=== PATIENT | male | born 1980 | race Caucasian/White ===

== ENCOUNTER 2020-12-13 10:30 | Outpatient (RCR) | payer OTHER, MEDICAID, SELFPAY ==
[2020-11-15 10:16] VITALS: BP 226/134; PULSE 127; RESP 18; TEMP 35.9
--- NOTE | 2020-11-15 12:16 | PCM.WC.HP ---
History of Present Illness Date of Service: 11/15/20 Chief Complaint: nonhealing wound of right posterior shoulder History of Wound: Chester is a 40 yo gentleman that presents to the wound healing center today for evaluation and treatment of a nonhealing wound of his right posterior shoulder. This has been present for approximately 1 month. He reports that he went to urgent care and was treated with doxycycline in mid-October and saw his a [employer] PILOT at his PCP office and was referred here for treatment. The wound started as an abscess that drained and hasn't healed. He has been treating the ulcer with rubbing alcohol and applying bandaids. He reports that he gets pimple like lesions and they drain and then will heal usually. He usually gets these on his legs or abdomen. He also has uncontrolled HTN and diabetes mellitus. He has not been taking any medications for the last year for treatment of these medical problems. He still has not restarted his diabetes medication. He did restart his blood pressure medication but was given half dose of what he was taking previously. He has a follow up with his PCP on 11/26/20 regarding management of this. His blood pressure is significantly elevated here today at 226/134 but similar to his BP reading at his PCP appointment. He denies any headaches, blurred vision, loss of vision, chest pain, dizziness, shortness of breath. He also denies fever or chills. He has not had any problems healing wounds in the past. He lives with his and 2 children. His is expecting their 3rd child in January. He works at [employer]. [facility] Medical History (Updated 11/15/20 @ 12:[address] Madelyn Keane DO) Diabetes mellitus, insulin dependent (IDDM), uncontrolled HTN (hypertension) Noncompliance w/medication treatment due to intermit use of medication Open wound of right scapular region Home Medications amlodipine 5 mg PO DAILY 11/15/20 [History Last Taken Unknown] amoxicillin-pot clavulanate [Augmentin] 1 tab PO BID #20 tab 11/15/20 [Rx Last Taken Unknown] doxepin 10 mg PO DAILY 11/15/20 [History Last Taken Unknown] insulin aspart U-100 [Novolog Flexpen U-100 Insulin] 10 unit SUBCUT 4X/DAY 11/15/20 [History Last Taken Unknown] insulin glargine [Lantus Solostar U-100 Insulin] 70 unit SUBCUT QHS 11/15/20 [History Last Taken Unknown] labetalol 300 mg PO BID 11/15/20 [History Last Taken Unknown] lisinopril 20 mg PO BID 11/15/20 [History Last Taken Unknown] loratadine 10 mg PO DAILY 11/15/20 [History Last Taken Unknown] metformin 1,000 mg PO BID 11/15/20 [History Last Taken Unknown] Allergy/AdvReac Type Severity Reaction Status Date / Time shellfish derived Allergy Shortness Verified 11/15/20 10:14 of breath Social History Smoking Status: Never smoker ROS Constitutional Constitutional: Denies chills, fatigue, fever(s), headache(s) or weakness Eyes Eyes: Denies blindness, blurry vision, change in vision, diplopia, double vision or loss of vision ENT HEENT: Denies abnormal hearing Cardiovascular Cardiovascular: Denies chest pain, dizziness, dyspnea, edema or palpitations Respiratory/Chest Respiratory/Chest: Denies cough or dyspnea Musculoskeletal Musculoskeletal: Denies muscle weakness or numbness Integumentary Integumentary: Reports wounds Neurologic Neurologic: Denies abnormal speech, confusion, dizziness, focal weakness, headache(s), loss of vision, memory loss or numbness Endocrine Endocrinology: Denies polydipsia, polyphagia or polyuria Hematologic/Lymphatic Hematologic/Lymphatic: Denies easy bleeding or easy bruising Vital Signs Vital Signs Vital Signs: 11/15/20 10:16 Temperature 96.7 F L Temperature Source Temporal Pulse Rate 127 H Respiratory Rate 18 Blood Pressure 226/134 H Blood Pressure Mean 164 Blood Pressure Source Monitor Blood Pressure Position Semi-Fowlers Blood Pressure Location Left Arm Physical Exam Const alert, oriented x3 and no apparent distress General Appearance: cooperative and comfortable HEENT normocephalic and head/scalp atraumatic Eyes PERRL Lymph Lymphatic: no lymphadenopathy noted Resp normal respiratory effort Effort and Inspection: able to speak in complete sentences Auscultation: clear to auscultation bilaterally Cardio regular rate and regular rhythm GI soft to palpation and non-distended Extremity General Extremity: Negative for edema Skin General Skin Exam: erythema Wounds: wounds noted Wound Narrative: as in clinical panel Neuro oriented x3 and no focal motor deficits Psych mental status grossly normal, thought process normal, cooperative, affect normal and speech normal Debridement Note Debridement Note Wound debrided: right upper back Laterality: Right Type of Debridement: Excisional debridement Anesthesia Used: 4% Lidocaine Solution Depth: Down to and including healthy tissue and in the subcutaneous layer Percentage of wound debrided: 100 Instrument Used: #15 blade and Forceps Tissue Removed: Yellow slough, devitalized tissue Severity: Fat Layer Exposed Amount of bleeding with debridement: Mild Bleeding Controlled with: Compression and gauze Patient tolerated procedure: Patient tolerated procedure well Post-Debridement Measurements and Additional Note: Post-Debridement Measurements/Treatment - Nurse 1 - General Ulcer Assessment Start: 11/15/20 10:13 Freq: Status: Active Protocol: LAVINIA.LOWEXT Activity Type Activity Date Activity User E-Sign Co-Sign Detail Recorded Client Recorded Date Recorded By Document 11/15/20 10:16 [id number] 11/15/20 10:32 RB 11/15/20 10:16 - Today's Visit Information Type of service Initial Visit Arrival Mode Ambulatory Transfer Assistance None Patient Identification Verified (Name & Yes ) Patient Requires Transmission-Based No Precautions Vital Signs Temperature (97.8 F-99.1 F) 96.7 F L Temperature Source Temporal Pulse Rate (60-100) 127 H Pulse Location Monitor Respiratory Rate (12-18) 18 Respiratory rate source Observation Blood Pressure (90/60-120/80) 226/134 H Blood Pressure Mean 164 Source Monitor Position Semi-Fowlers Blood Pressure Location Left Arm History Since Last Visit- (Skip if this is Patient's initial visit) Have you changed medications since your No last visit? Any new allergies or adverse reactions No Had a fall/change in ADL's that may No increase risk of falls Signs or symptoms of abuse and/or No neglect since last visit Have you been in the hospital since your No last visit? Has dressing in place as prescribed Yes Has compression in place as prescribed No Has offloadiing in place as prescribed No Experienced any changes in pain level or No management Left Footwear Regular Shoe Right Footwear Regular Shoe Pain Scale: 0-10 Numeric Is Patient Pain Free? Yes Communication Assessment Preferred language Vietnamese Automotive Repair Technician Required No Able to Read Yes Able to Write Yes Communication Tools None Caregiver Communication Skills No Impairment Impairment Right Hearing Abillity Normal Left Hearing Abillity Normal Visual Assistive Devices None Teaching Assessment Preferences Verbal,Written, Demonstration Barriers to Learning None Readiness To Learn Good Willingness to Engage in Self Management Med Activies Readiness to Engage in Self Management Med Activities Anxiety Level Calm Cooperation Cooperative Perception Coherent Interest in Health Problem Asks Questions Education Importance Acknowledges Need Does Patient Smoke tobacco or other Yes substances Smoking Status Never smoker Is Patient Diabetic Yes Functional Assessment Recent Decline in Ability to Perform Denies Any Declines Assistive Device With Patient No Culture/Oriental Orthodox/Ward Maid Cultural/Oriental Orthodox Needs that may affect No Treatment Plan Would you allow our hospital embedded engineer to No meet you for the purpose of spiritual/ emotional support? Ward Maid to contact place of orthodoxy No Teaching: Wound Center *Welcome to the Wound Center -Person Taught Patient -Teaching Method Discussion, Demonstration -Response to teaching Verbalize understanding LAVINIA - Nurse 1 - General Ulcer Measurement Start: 11/15/20 10:13 Freq: Status: Active Protocol: Activity Type Activity Date Activity User E-Sign Co-Sign Detail Recorded Client Recorded Date Recorded By Document 11/15/20 10:16 RB [id number] 11/15/20 10:32 RB 11/15/20 10:16 Wound Center Nurse 1 1. RIGHT UPPER BACK -Combined with other wound No -Current Size (cm) - Length 3 -Current Size (cm) - Width 3.5 -Current Size (cm) - Depth 1 -Total Square Cm 10.5 -Photo Taken Yes -Tunneling No -Undermining/Tunneling Yes -Undermining/Tunneling Starts (O'clock 10 ) -Undermining/Tunneling Ends (O'clock) 12 -Maximum Distance (cm) 0.4 -Circular Undermining No -Exudate Amt Large -Exudate Type Serosanguineous -Wound Margin Thickened & Rolled Under -Granulation Amt Medium (34-66%) -Granulation Quality [place] -Slough/Fibrin Yes -Necrosis Amt Medium (34-66%) -Necrotic Tissue Type Adherent Slough -Structure Exposed N/A -Texture (Jess-wound Skin Appearance) Assessed, Excoriation, Scarring -Moisture (Jess-wound Skin Appearance) Assessed -Color (Jess-wound Skin Appearance) Assessed -Temperature (Jess-wound Skin No Abnormality Appearance) (Pt Warm) -Tenderness on Palpation (Jess-wound No Skin Appearance) -Ulcer Cleansing Wound Cleanser -Foul Odor after Cleansing No -Anesthetic Used 4% Lidocaine Solution LAVINIA - Nurse 2 - General Ulcer CM Notes Start: 11/15/20 10:13 Freq: Status: Active Protocol: Activity Type Activity Date Activity User E-Sign Co-Sign Detail Recorded Client Recorded Date Recorded By Document 11/15/20 11:01 MW [id number] 11/15/20 11:16 MW 11/15/20 11:01 Wound Center Nurse 2 -Time 11:01 -Correct Patient Yes -Correct Side, Site, Position Yes -Correct Procedure Yes -Procedure Performed Yes -Type of Procedure Debridement -Clinical Debridement Subcutaneous -Tissue Removed Subcutaneous -Post Debridement (cm) - Length 3.5 -Post Debridement (cm) - Width 4.5 -Post Debridement (cm) - Depth 0.9 -Total Square (Post) (cm) 15.75 -Area of Debridement (cm) - Length 3.5 -Area of Debridement (cm) - Width 4.5 -Total Square (Area) (cm) 15.75 -Tunneling Yes -Tunneling Position (O'clock) 5 -Tunneling Distance (cm) 0.9 -Undermining/Tunneling Yes -Undermining/Tunneling Starts (O'clock 1 ) -Undermining/Tunneling Ends (O'clock) 2 -Maximum Distance (cm) 0.9 -Circular Undermining No -Wound/Ulcer Outcome Not Healed -Ulcer Cleansing Rinsed/ Irrigated with Saline -Foul Odor after Cleansing No -Bioengineered Tissue No -Bleeding Controlled with Pressure -Offloading No -Treatment Response Procedure Tolerated Well -Debridement - Subq, 1st 20sq cm Yes Pain Scale: 0-10 Numeric Is Patient Pain Free? Yes - Nurse 3 - General Ulcer D/C NN Start: 11/15/20 10:13 Freq: Status: Active Protocol: Activity Type Activity Date Activity User E-Sign Co-Sign Detail Recorded Client Recorded Date Recorded By Document 11/15/20 11:24 MW [id number] 11/15/20 11:27 MW 11/15/20 11:24 Wound Care Nurse 3 1. RIGHT UPPER BACK -Ulcer Cleansing Rinsed/ Irrigated with Saline -Foul Odor after Cleansing No -Negative Pressure Wound Therapy N/A -Primary Dressing Applied Aquacel AG 4x4 -Primary Dressing Covered/Secured with Secured with Tape -Other Covering ABD PAD -Aquacel AG 4x4 2 Treatment Response Procedure Tolerated Well Pain Scale: 0-10 Numeric Is Patient Pain Free? Yes Teaching: Wound Center Dressing Your Wound -Person Taught Patient -Teaching Method Demonstration -Response to teaching Verbalize understanding WC - Visit Discharge Discharge Condition Stable Ambulatory Status Ambulatory Transportation Private Auto Accompanied by SELF Medication Reconcilliation completed & No provided to patient/care provider Clinical Summary of Care Provided Yes Assessment/Plan Assessment/Plan (1) Non-healing non-surgical wound: CODE(S): T14.8XXA - Other injury of unspecified body region, initial encounter (2) Diabetes mellitus, insulin dependent (IDDM), uncontrolled: (3) Abscess of scapular region: CODE(S): L02.212 - Cutaneous abscess of back [any part, except buttock] (4) Asymptomatic hypertensive urgency: CODE(S): I16.0 - Hypertensive urgency (5) HTN (hypertension): CODE(S): I10 - Essential (primary) hypertension QUALIFIERS: Hypertension type: primary hypertension Qualified Code(s): I10 - Essential (primary) hypertension (6) Noncompliance w/medication treatment due to intermit use of medication: CODE(S): Z91.14 - Patient's other noncompliance with medication regimen (7) Open wound of right scapular region: CODE(S): S41.001A - Unspecified open wound of right shoulder, initial encounter QUALIFIERS: Encounter type: initial encounter Qualified Code(s): S41.001A - Unspecified open wound of right shoulder, initial encounter PLAN: Chester's wound was evaluated and debrided today at the wound healing center. Wound culture was taken to evaluate for infection and he will start on Augmentin and will adjust the antibiotic if needed based on results of the wound culture. Due to moderate to heavy drainage, will have him use Aquacel Ag to the wound bed and cover with adaptic and ABD with changes daily. His will assist him with the dressing changes. His elevated blood pressure was addressed with him and he was urged to call his PCP to adjust his medications. He was encouraged to start back on his diabetes medications, as the control of his blood sugars is important in healing his wound. He was advised to increase protein intake in order to support wound healing. He was advised to call if worsening of wound, erythema, fever, chills, odor develop. Would consider biopsy of the wound if there is not improvement or infection on culture. He will follow up in 1 week for wound care.
[2020-11-22 10:54] VITALS: BP 196/123; PULSE 112; RESP 18; TEMP 35.7
--- NOTE | 2020-11-22 14:25 | PN.PCM_ITS ---
History of Present Illness Date of Service: 11/22/20 Chief Complaint: nonhealing wound of right posterior shoulder History of Wound: Chester is a 40 yo gentleman that presents to the wound healing center today for evaluation and treatment of a nonhealing wound of his right posterior shoulder. This has been present for approximately 1 month. He reports that he went to urgent care and was treated with doxycycline in mid-October and saw his a EXTRACTIONS TECHNOLOGIST at his PCP office and was referred here for treatment. The wound started as an abscess that drained and hasn't healed. He has been treating the ulcer with rubbing alcohol and applying bandaids. He reports that he gets pimple like lesions and they drain and then will heal usually. He usually gets these on his legs or abdomen. He also has uncontrolled HTN and diabetes mellitus. He has not been taking any medications for the last year for treatment of these medical problems. He still has not restarted his diabetes medication. He did restart his blood pressure medication but was given half dose of what he was taking previously. He has a follow up with his PCP on 11/26/20 regarding management of this. His blood pressure is significantly elevated here today at 226/134 but similar to his BP reading at his PCP appointment. He denies any headaches, blurred vision, loss of vision, chest pain, dizziness, shortness of breath. He also denies fever or chills. He has not had any problems healing wounds in the past. He lives with his and 2 children. His is expecting their 3rd child in January. He works at [employer]. Progress of Wound: Chester's ulcer/wound is improved. He is tolerating treatment well. Wound culture was positive for Staph and was sensitive to Augmentin. He completes this in 2 days. Objective Data Objective Data Vital Signs: Vital Signs Temp Pulse Resp BP 96.2 F L 112 H 18 196/123 H 11/22/20 10:54 11/22/20 10:54 11/22/20 10:54 11/22/20 10:54 Lab / Micro Data Micro: Microbiology 11/15/20 11:15 Wound Abcess - Back Gram Stain - Final 11/15/20 11:15 Wound Abcess - Back Wound Culture - Final Staphylococcus aureus 11/15/20 11:15 Wound Abcess - Back Anaerobic Culture - Final No anaerobic bacteria isolated. Physical Exam Const alert, oriented x3 and no apparent distress General Appearance: cooperative and comfortable HEENT normocephalic and head/scalp atraumatic Eyes PERRL Lymph Lymphatic: no lymphadenopathy noted Resp normal respiratory effort Effort and Inspection: able to speak in complete sentences Auscultation: clear to auscultation bilaterally Cardio regular rate and regular rhythm GI soft to palpation and non-distended Extremity General Extremity: Negative for edema Skin General Skin Exam: erythema Wounds: wounds noted Wound Narrative: as in clinical panel Neuro oriented x3 and no focal motor deficits Psych mental status grossly normal, thought process normal, cooperative, affect normal and speech normal Debridement Note Debridement Note Wound debrided: right upper back Laterality: Right Type of Debridement: Excisional debridement Anesthesia Used: 4% Lidocaine Solution Depth: Down to and including healthy tissue and in the subcutaneous layer Percentage of wound debrided: 100 Instrument Used: 3mm curette Tissue Removed: Yellow slough, devitalized tissue Severity: Fat Layer Exposed Amount of bleeding with debridement: Mild Bleeding Controlled with: Compression and gauze Patient tolerated procedure: Patient tolerated procedure well Post-Debridement Measurements and Additional Note: Post-Debridement Measurements/Treatment [facility] Nurse 1 - General Ulcer Assessment Start: 11/15/20 10:13 Freq: Status: Active Protocol: MYAH Activity Type Activity Date Activity User E-Sign Co-Sign Detail Recorded Client Recorded Date Recorded By Document 11/15/20 10:16 [id number] 11/15/20 10:32 Document 11/22/20 10:54 JAYJAY [id number] 11/22/20 11:04 11/15/20 11/22/20 10:16 10:54 - Today's Visit Information Type of service Initial Visit Follow-up Visit (Physician/EXTRACTIONS TECHNOLOGIST ) Arrival Mode Ambulatory Ambulatory Transfer Assistance None Patient Identification Verified (Name & Yes No ) Patient Requires Transmission-Based No No Precautions Finger Stick Blood Sugar(mg/dl) (if 250 indicated): Blood Sugar Stated by Patient Vital Signs Temperature (97.8 F-99.1 F) 96.7 F L 96.2 F L Temperature Source Temporal Temporal Pulse Rate (60-100) 127 H 112 H Pulse Location Monitor Monitor Respiratory Rate (12-18) 18 18 Respiratory rate source Observation Observation Blood Pressure (90/60-120/80) 226/134 H 196/123 H Blood Pressure Mean (mm Hg) 164 147 Source Monitor Monitor Position Semi-Fowlers Sitting Blood Pressure Location Left Arm Left Arm History Since Last Visit- (Skip if this is Patient's initial visit) Have you changed medications since your No No last visit? Any new allergies or adverse reactions No No Had a fall/change in ADL's that may No increase risk of falls Signs or symptoms of abuse and/or No No neglect since last visit Have you been in the hospital since your No No last visit? Has dressing in place as prescribed Yes Yes Has compression in place as prescribed No N/A Has offloadiing in place as prescribed No N/A Experienced any changes in pain level or No No management Left Footwear Regular Shoe Regular Shoe Right Footwear Regular Shoe Regular Shoe Pain Scale: 0-10 Numeric Is Patient Pain Free? Yes Yes Communication Assessment Preferred language [place] Customer Experience Strategist Required No Able to Read Yes Able to Write Yes Communication Tools None Caregiver Communication Skills No Impairment Impairment Right Hearing Abillity Normal Left Hearing Abillity Normal Visual Assistive Devices None Teaching Assessment Preferences Verbal,Written, Demonstration Barriers to Learning None Readiness To Learn Good Willingness to Engage in Self Management Med Activies Readiness to Engage in Self Management Med Activities Anxiety Level Calm Cooperation Cooperative Perception Coherent Interest in Health Problem Asks Questions Education Importance Acknowledges Need Does Patient Smoke tobacco or other Yes substances Smoking Status Never smoker Is Patient Diabetic Yes Functional Assessment Recent Decline in Ability to Perform Denies Any Declines Assistive Device With Patient No Culture/Samaritan/Ground Products Director Cultural/Samaritan Needs that may affect No Treatment Plan Would you allow our hospital loans officer to No meet you for the purpose of spiritual/ emotional support? Ground Products Director to contact place of jehovah's witness No Teaching: Wound Center *Welcome to the Wound Center -Person Taught Patient -Teaching Method Discussion, Demonstration -Response to teaching Verbalize understanding WC - Nurse 1 - General Ulcer Measurement Start: 11/15/20 10:13 Freq: Status: Active Protocol: Activity Type Activity Date Activity User E-Sign Co-Sign Detail Recorded Client Recorded Date Recorded By Document 11/15/20 10:16 RB [id number] 11/15/20 10:32 RB Document 11/22/20 10:54 JAYJAY [id number] 11/22/20 11:04 JAYJAY 11/15/20 11/22/20 10:16 10:54 Wound Center Nurse 1 1. RIGHT UPPER BACK -Combined with other wound No No -Current Size (cm) - Length 3 2.7 -Current Size (cm) - Width 3.5 4.1 -Current Size (cm) - Depth 1 0.7 -Total Square Cm 10.5 11.07 -Photo Taken Yes No -Epithelialization Small 1-33% -Tunneling No No -Undermining/Tunneling Yes No -Undermining/Tunneling Starts (O'clock 10 ) -Undermining/Tunneling Ends (O'clock) 12 -Maximum Distance (cm) 0.4 -Circular Undermining No No -Exudate Amt Large Medium -Exudate Type Serosanguineous Serosanguineous -Wound Margin Thickened & Flat & Intact Rolled Under -Granulation Amt Medium (34-66%) Large (67-100%) -Granulation Quality Spur Red -Slough/Fibrin Yes Yes -Necrosis Amt Medium (34-66%) Small (1-33%) -Necrotic Tissue Type Adherent Slough Adherent Slough -Structure Exposed N/A N/A -Texture (Jess-wound Skin Appearance) Assessed, Assessed Excoriation, Scarring -Moisture (Jess-wound Skin Appearance) Assessed -Color (Jess-wound Skin Appearance) Assessed Assessed -Temperature (Jess-wound Skin No Abnormality No Abnormality Appearance) (Pt Warm) (Pt Warm) -Tenderness on Palpation (Jess-wound No No Skin Appearance) -Ulcer Cleansing Wound Cleanser Rinsed/ Irrigated with Saline -Foul Odor after Cleansing No No -Anesthetic Used 4% Lidocaine 4% Lidocaine Solution Solution Lower Limb Edema Present NA WC - Nurse 2 - General Ulcer CM Notes Start: 11/15/20 10:13 Freq: Status: Active Protocol: Activity Type Activity Date Activity User E-Sign Co-Sign Detail Recorded Client Recorded Date Recorded By Document 11/15/20 11:01 MW [id number] 11/15/20 11:16 MW Document 11/22/20 11:29 MW [id number] 11/22/20 11:36 MW 11/15/20 11/22/20 11:01 11:29 Wound Center Nurse 2 1. RIGHT UPPER BACK -Time 11:01 11:29 -Correct Patient Yes Yes -Correct Side, Site, Position Yes Yes -Correct Procedure Yes Yes -Procedure Performed Yes Yes -Type of Procedure Debridement Debridement -Clinical Debridement Subcutaneous Subcutaneous -Tissue Removed Subcutaneous Subcutaneous -Post Debridement (cm) - Length 3.5 3.1 -Post Debridement (cm) - Width 4.5 4.2 -Post Debridement (cm) - Depth 0.9 0.5 -Total Square (Post) (cm) 15.75 13.02 -Area of Debridement (cm) - Length 3.5 3.1 -Area of Debridement (cm) - Width 4.5 4.2 -Total Square (Area) (cm) 15.75 13.02 -Tunneling Yes No -Tunneling Position (O'clock) 5 5 -Tunneling Distance (cm) 0.9 0.9 -Undermining/Tunneling Yes Yes -Undermining/Tunneling Starts (O'clock 1 1 ) -Undermining/Tunneling Ends (O'clock) 2 2 -Maximum Distance (cm) 0.9 0.3 -Circular Undermining No No -Wound/Ulcer Outcome Not Healed Not Healed -Ulcer Cleansing Rinsed/ Rinsed/ Irrigated with Irrigated with Saline Saline -Foul Odor after Cleansing No No -Bioengineered Tissue No No -Bleeding Controlled with Pressure Pressure -Offloading No No -Treatment Response Procedure Procedure Tolerated Well Tolerated Well -Debridement - Subq, 1st 20sq cm Yes Yes Pain Scale: 0-10 Numeric Is Patient Pain Free? Yes Yes - Nurse 3 - General Ulcer D/C NN Start: 11/15/20 10:13 Freq: Status: Active Protocol: Activity Type Activity Date Activity User E-Sign Co-Sign Detail Recorded Client Recorded Date Recorded By Document 11/15/20 11:24 MW [id number] 11/15/20 11:27 MW Document 11/22/20 11:54 RB [id number] 11/22/20 11:55 RB 11/15/20 11/22/20 11:24 11:54 Wound Care Nurse 3 1. RIGHT UPPER BACK -Ulcer Cleansing Rinsed/ Rinsed/ Irrigated with Irrigated with Saline Saline -Foul Odor after Cleansing No -Negative Pressure Wound Therapy N/A -Primary Dressing Applied Aquacel AG 4x4 Aquacel AG 4x4 -Primary Dressing Covered/Secured with Secured with Dry Gauze, Tape Secured with Tape -Other Covering ABD PAD -Aquacel AG 4x4 2 1 Treatment Response Procedure Procedure Tolerated Well Tolerated Well Pain Scale: 0-10 Numeric Is Patient Pain Free? Yes Yes Teaching: Wound Center Dressing Your Wound -Person Taught Patient -Teaching Method Demonstration -Response to teaching Verbalize understanding WC - Visit Discharge Discharge Condition Stable Stable Ambulatory Status Ambulatory Ambulatory Transportation Private Auto Private Auto Accompanied by SELF Medication Reconcilliation completed & No No provided to patient/care provider Clinical Summary of Care Provided Yes Yes Assessment/Plan Assessment/Plan (1) Non-healing non-surgical wound: CODE(S): T14.8XXA - Other injury of unspecified body region, initial encounter (2) Diabetes mellitus, insulin dependent (IDDM), uncontrolled: (3) Abscess of scapular region: CODE(S): L02.212 - Cutaneous abscess of back [any part, except buttock] (4) Asymptomatic hypertensive urgency: CODE(S): I16.0 - Hypertensive urgency (5) HTN (hypertension): CODE(S): I10 - Essential (primary) hypertension QUALIFIERS: Hypertension type: primary hypertension Qualified Code(s): I10 - Essential (primary) hypertension (6) Noncompliance w/medication treatment due to intermit use of medication: CODE(S): Z91.14 - Patient's other noncompliance with medication regimen (7) Open wound of right scapular region: CODE(S): S41.001A - Unspecified open wound of right shoulder, initial encounter QUALIFIERS: Encounter type: initial encounter Qualified Code(s): S41.001A - Unspecified open wound of right shoulder, initial encounter PLAN: Chester's wound was evaluated and debrided today at the wound healing center. Wound culture was positive for staph. He will complete Augmentin in 3 days. Due to moderate to heavy drainage, will have him use Aquacel Ag to the wound bed and cover with adaptic and ABD with changes daily. His will assist him with the dressing changes. His elevated blood pressure was addressed with him and he was urged to call his PCP to adjust his medications. He was encouraged to start back on his diabetes medications, as the control of his blood sugars is important in healing his wound. He was advised to increase protein intake in order to support wound healing. He was advised to call if worsening of wound, erythema, fever, chills, odor develop. Would consider biopsy of the wound if there is not improvement or infection on culture. He will follow up in 1 week for wound care.
[2020-11-29 10:15] VITALS: BP 217/128; PULSE 104; RESP 18; TEMP 36.6
--- NOTE | 2020-11-29 15:34 | PCM.WC.PN ---
History of Present Illness Date of Service: 11/29/20 Chief Complaint: nonhealing wound of right posterior shoulder History of Wound: Chester is a 40 yo gentleman that presents to the wound healing center today for evaluation and treatment of a nonhealing wound of his right posterior shoulder. This has been present for approximately 1 month. He reports that he went to urgent care and was treated with doxycycline in mid-October and saw his a MECHANICAL ESTIMATOR at his PCP office and was referred here for treatment. The wound started as an abscess that drained and hasn't healed. He has been treating the ulcer with rubbing alcohol and applying bandaids. He reports that he gets pimple like lesions and they drain and then will heal usually. He usually gets these on his legs or abdomen. He also has uncontrolled HTN and diabetes mellitus. He has not been taking any medications for the last year for treatment of these medical problems. He still has not restarted his diabetes medication. He did restart his blood pressure medication but was given half dose of what he was taking previously. He has a follow up with his PCP on 11/26/20 regarding management of this. His blood pressure is significantly elevated here today at 226/134 but similar to his BP reading at his PCP appointment. He denies any headaches, blurred vision, loss of vision, chest pain, dizziness, shortness of breath. He also denies fever or chills. He has not had any problems healing wounds in the past. He lives with his and 2 children. His is expecting their 3rd child in January. He works at [employer]. Progress of Wound: Chester's ulcer/wound is improved. He is tolerating treatment well. Objective Data Objective Data Vital Signs: Vital Signs Temp Pulse Resp BP 98 F 104 H 18 217/128 H 11/29/20 10:15 11/29/20 10:15 11/29/20 10:15 11/29/20 10:15 Lab / Micro Data Micro: Microbiology 11/15/20 11:15 Wound Abcess - Back Gram Stain - Final 11/15/20 11:15 Wound Abcess - Back Wound Culture - Final Staphylococcus aureus 11/15/20 11:15 Wound Abcess - Back Anaerobic Culture - Final No anaerobic bacteria isolated. Physical Exam Const alert, oriented x3 and no apparent distress General Appearance: cooperative and comfortable HEENT normocephalic and head/scalp atraumatic Eyes PERRL Lymph Lymphatic: no lymphadenopathy noted Resp normal respiratory effort Effort and Inspection: able to speak in complete sentences Auscultation: clear to auscultation bilaterally Cardio regular rate and regular rhythm GI soft to palpation and non-distended Extremity General Extremity: Negative for edema Skin General Skin Exam: erythema Wounds: wounds noted Wound Narrative: as in clinical panel Neuro oriented x3 and no focal motor deficits Psych mental status grossly normal, thought process normal, cooperative, affect normal and speech normal Debridement Note Debridement Note Wound debrided: right posterior shoulder Laterality: Right Type of Debridement: Excisional debridement Anesthesia Used: 4% Lidocaine Solution Depth: Down to and including healthy tissue and in the subcutaneous layer Percentage of wound debrided: 100 Instrument Used: 3mm curette Tissue Removed: Yellow slough, devitalized tissue Severity: Fat Layer Exposed Amount of bleeding with debridement: Mild Bleeding Controlled with: Compression and gauze Patient tolerated procedure: Patient tolerated procedure well Post-Debridement Measurements and Additional Note: Post-Debridement Measurements/Treatment - Nurse 1 - General Ulcer Assessment Start: 11/15/20 10:13 Freq: Status: Active Protocol: MYAH Activity Type Activity Date Activity User E-Sign Co-Sign Detail Recorded Client Recorded Date Recorded By Document 11/15/20 10:16 RB [id number] 11/15/20 10:32 RB Document 11/22/20 10:54 [id number] 11/22/20 11:04 Document 11/29/20 10:15 RB [id number] 11/29/20 10:17 RB 11/15/20 11/22/20 11/29/20 10:16 10:54 10:15 - Today's Visit Information Type of service Initial Visit Follow-up Visit Follow-up Visit (Physician/MECHANICAL ESTIMATOR (Physician/MECHANICAL ESTIMATOR ) ) Arrival Mode Ambulatory Ambulatory Ambulatory Transfer Assistance None None Patient Identification Verified (Name & Yes No Yes ) Patient Requires Transmission-Based No No No Precautions Finger Stick Blood Sugar(mg/dl) (if 250 indicated): Blood Sugar Stated by Patient Vital Signs Temperature (97.8 F-99.1 F) 96.7 F L 96.2 F L 98 F Temperature Source Temporal Temporal Temporal Pulse Rate (60-100) 127 H 112 H 104 H Pulse Location Monitor Monitor Monitor Respiratory Rate (12-18) 18 18 18 Respiratory rate source Observation Observation Observation Blood Pressure (90/60-120/80) 226/134 H 196/123 H 217/128 H Blood Pressure Mean (mm Hg) 164 147 157 Source Monitor Monitor Monitor Position Semi-Fowlers Sitting Semi-Fowlers Blood Pressure Location Left Arm Left Arm Left Arm History Since Last Visit- (Skip if this is Patient's initial visit) Have you changed medications since your No No No last visit? Any new allergies or adverse reactions No No No Had a fall/change in ADL's that may No No increase risk of falls Signs or symptoms of abuse and/or No No No neglect since last visit Have you been in the hospital since your No No No last visit? Has dressing in place as prescribed Yes Yes Yes Has compression in place as prescribed No N/A No Has offloadiing in place as prescribed No N/A No Experienced any changes in pain level or No No No management Left Footwear Regular Shoe Regular Shoe Right Footwear Regular Shoe Regular Shoe Pain Scale: 0-10 Numeric Is Patient Pain Free? Yes Yes Yes Communication Assessment Preferred language Estonian Medicine And Health Service Manager Required No Able to Read Yes Able to Write Yes Communication Tools None Caregiver Communication Skills No Impairment Impairment Right Hearing Abillity Normal Left Hearing Abillity Normal Visual Assistive Devices None Teaching Assessment Preferences Verbal,Written, Demonstration Barriers to Learning None Readiness To Learn Good Willingness to Engage in Self Management Med Activies Readiness to Engage in Self Management Med Activities Anxiety Level Calm Cooperation Cooperative Perception Coherent Interest in Health Problem Asks Questions Education Importance Acknowledges Need Does Patient Smoke tobacco or other Yes substances Smoking Status Never smoker Is Patient Diabetic Yes Functional Assessment Recent Decline in Ability to Perform Denies Any Declines Assistive Device With Patient No Culture/Anabaptist/Software Test Analyst Cultural/Anabaptist Needs that may affect No Treatment Plan Would you allow our hospital platform software engineer to No meet you for the purpose of spiritual/ emotional support? Software Test Analyst to contact place of mormon No Teaching: Wound Center *Welcome to the Wound Center -Person Taught Patient -Teaching Method Discussion, Demonstration -Response to teaching Verbalize understanding WC - Nurse 1 - General Ulcer Measurement Start: 11/15/20 10:13 Freq: Status: Active Protocol: Activity Type Activity Date Activity User E-Sign Co-Sign Detail Recorded Client Recorded Date Recorded By Document 11/15/20 10:16 RB [id number] 11/15/20 10:32 RB Document 11/22/20 10:54 [id number] 11/22/20 11:04 Document 11/29/20 10:15 RB [id number] 11/29/20 10:17 RB 11/15/20 11/22/20 11/29/20 10:16 10:54 10:15 Wound Center Nurse 1 1. RIGHT UPPER BACK -Combined with other wound No No No -Current Size (cm) - Length 3 2.7 2.5 -Current Size (cm) - Width 3.5 4.1 4 -Current Size (cm) - Depth 1 0.7 0.5 -Total Square Cm 10.5 11.07 10.0 -Photo Taken Yes No -Epithelialization Small 1-33% -Tunneling No No No -Undermining/Tunneling Yes No No -Undermining/Tunneling Starts (O'clock 10 ) -Undermining/Tunneling Ends (O'clock) 12 -Maximum Distance (cm) 0.4 -Circular Undermining No No No -Exudate Amt Large Medium Large -Exudate Type Serosanguineous Serosanguineous Serosanguineous -Wound Margin Thickened & Flat & Intact Thickened & Rolled Under Rolled Under -Granulation Amt Medium (34-66%) Large (67-100%) Large (67-100%) -Granulation Quality [place] Red Red -Slough/Fibrin Yes Yes Yes -Necrosis Amt Medium (34-66%) Small (1-33%) Small (1-33%) -Necrotic Tissue Type Adherent Slough Adherent Slough Adherent Slough -Structure Exposed N/A N/A N/A -Texture (Jess-wound Skin Appearance) Assessed, Assessed Assessed, Excoriation, Scarring Scarring -Moisture (Jess-wound Skin Appearance) Assessed Assessed -Color (Jess-wound Skin Appearance) Assessed Assessed Assessed -Temperature (Jess-wound Skin No Abnormality No Abnormality No Abnormality Appearance) (Pt Warm) (Pt Warm) (Pt Warm) -Tenderness on Palpation (Jess-wound No No No Skin Appearance) -Ulcer Cleansing Wound Cleanser Rinsed/ Wound Cleanser Irrigated with Saline -Foul Odor after Cleansing No No No -Anesthetic Used 4% Lidocaine 4% Lidocaine 5% Lidocaine Solution Solution Gel Lower Limb Edema Present NA WC - Nurse 2 - General Ulcer CM Notes Start: 11/15/20 10:13 Freq: Status: Active Protocol: Activity Type Activity Date Activity User E-Sign Co-Sign Detail Recorded Client Recorded Date Recorded By Document 11/15/20 11:01 MW [id number] 11/15/20 11:16 MW Document 11/22/20 11:29 MW [id number] 11/22/20 11:36 MW Document 11/29/20 10:43 MW [id number] 11/29/20 10:49 MW 11/15/20 11/22/20 11/29/20 11:01 11:29 10:43 Wound Center Nurse 2 1. RIGHT UPPER BACK -Time 11: 11:29 10:43 -Correct Patient Yes Yes Yes -Correct Side, Site, Position Yes Yes Yes -Correct Procedure Yes Yes Yes -Procedure Performed Yes Yes Yes -Type of Procedure Debridement Debridement Debridement -Clinical Debridement Subcutaneous Subcutaneous Subcutaneous -Tissue Removed Subcutaneous Subcutaneous Subcutaneous -Post Debridement (cm) - Length 3.5 3.1 2.7 -Post Debridement (cm) - Width 4.5 4.2 4.0 -Post Debridement (cm) - Depth 0.9 0.5 0.2 -Total Square (Post) (cm) 15.75 13.02 10.80 -Area of Debridement (cm) - Length 3.5 3.1 2.7 -Area of Debridement (cm) - Width 4.5 4.2 4.0 -Total Square (Area) (cm) 15.75 13.02 10.80 -Tunneling Yes No No -Tunneling Position (O'clock) 5 5 -Tunneling Distance (cm) 0.9 0.9 -Undermining/Tunneling Yes Yes No -Undermining/Tunneling Starts (O'clock 1 1 ) -Undermining/Tunneling Ends (O'clock) 2 2 -Maximum Distance (cm) 0.9 0.3 -Circular Undermining No No No -Wound/Ulcer Outcome Not Healed Not Healed Not Healed -Ulcer Cleansing Rinsed/ Rinsed/ Rinsed/ Irrigated with Irrigated with Irrigated with Saline Saline Saline -Foul Odor after Cleansing No No No -Bioengineered Tissue No No No -Bleeding Controlled with Pressure Pressure Pressure -Offloading No No No -Treatment Response Procedure Procedure Procedure Tolerated Well Tolerated Well Tolerated Well -Debridement - Subq, 1st 20sq cm Yes Yes Yes Pain Scale: 0-10 Numeric Is Patient Pain Free? Yes Yes Yes WC - Nurse 3 - General Ulcer D/C NN Start: 11/15/20 10:13 Freq: Status: Active Protocol: Activity Type Activity Date Activity User E-Sign Co-Sign Detail Recorded Client Recorded Date Recorded By Document 11/15/20 11:24 MW [id number] 11/15/20 11:27 MW Document 11/22/20 11:54 RB [id number] 11/22/20 11:55 RB Document 11/29/20 10:49 MW [id number] 11/29/20 10:50 MW 11/15/20 11/22/20 11/29/20 11:24 11:54 10:49 Wound Care Nurse 3 1. RIGHT UPPER BACK -Ulcer Cleansing Rinsed/ Rinsed/ Rinsed/ Irrigated with Irrigated with Irrigated with Saline Saline Saline -Foul Odor after Cleansing No No -Negative Pressure Wound Therapy N/A N/A -Primary Dressing Applied Aquacel AG 4x4 Aquacel AG 4x4 Aquacel AG 4x4, NonAdherent Contact Layer -Primary Dressing Covered/Secured with Secured with Dry Gauze, Secured with Tape Secured with Tape Tape -Other Covering ABD PAD abd pad -Aquacel AG 4x4 2 1 1 Treatment Response Procedure Procedure Procedure Tolerated Well Tolerated Well Tolerated Well Pain Scale: 0-10 Numeric Is Patient Pain Free? Yes Yes Yes Teaching: Wound Center Dressing Your Wound -Person Taught Patient Patient -Teaching Method Demonstration Discussion, Demonstration -Response to teaching Verbalize Verbalize understanding understanding WC - Visit Discharge Discharge Condition Stable Stable Stable Ambulatory Status Ambulatory Ambulatory Ambulatory Transportation Private Auto Private Auto Private Auto Accompanied by SELF self Medication Reconcilliation completed & No No No provided to patient/care provider Clinical Summary of Care Provided Yes Yes Yes Assessment/Plan Assessment/Plan (1) Non-healing non-surgical wound: CODE(S): T14.8XXA - Other injury of unspecified body region, initial encounter (2) Diabetes mellitus, insulin dependent (IDDM), uncontrolled: (3) Abscess of scapular region: CODE(S): L02.212 - Cutaneous abscess of back [any part, except buttock] (4) Asymptomatic hypertensive urgency: CODE(S): I16.0 - Hypertensive urgency (5) HTN (hypertension): CODE(S): I10 - Essential (primary) hypertension QUALIFIERS: Hypertension type: primary hypertension Qualified Code(s): I10 - Essential (primary) hypertension (6) Noncompliance w/medication treatment due to intermit use of medication: CODE(S): Z91.14 - Patient's other noncompliance with medication regimen (7) Open wound of right scapular region: CODE(S): S41.001A - Unspecified open wound of right shoulder, initial encounter QUALIFIERS: Encounter type: initial encounter Qualified Code(s): S41.001A - Unspecified open wound of right shoulder, initial encounter PLAN: Chester's wound was evaluated and debrided today at the wound healing center. Due to moderate to heavy drainage, will have him use Aquacel Ag to the wound bed and cover with adaptic and ABD with changes daily. His will assist him with the dressing changes. His elevated blood pressure was again addressed with him and he was urged to call his PCP to adjust his medications. He was encouraged to start back on his diabetes medications, as the control of his blood sugars is important in healing his wound. He was advised to increase protein intake in order to support wound healing. He was advised to call if worsening of wound, erythema, fever, chills, odor develop. Would consider biopsy of the wound if there is not improvement or infection on culture. He will follow up in 1 week for wound care.
[2020-12-13 10:36] VITALS: BP 209/126; PULSE 109; RESP 18; TEMP 36.5
--- NOTE | 2020-12-13 13:00 | PCM.WC.PN ---
History of Present Illness Date of Service: 12/13/20 Chief Complaint: nonhealing wound of right posterior shoulder History of Wound: Chester is a 40 yo gentleman that presents to the wound healing center today for evaluation and treatment of a nonhealing wound of his right posterior shoulder. This has been present for approximately 1 month. He reports that he went to urgent care and was treated with doxycycline in mid-October and saw his a SUPERVISOR BU[employer] at his PCP office and was referred here for treatment. The wound started as an abscess that drained and hasn't healed. He has been treating the ulcer with rubbing alcohol and applying bandaids. He reports that he gets pimple like lesions and they drain and then will heal usually. He usually gets these on his legs or abdomen. He also has uncontrolled HTN and diabetes mellitus. He has not been taking any medications for the last year for treatment of these medical problems. He still has not restarted his diabetes medication. He did restart his blood pressure medication but was given half dose of what he was taking previously. He has a follow up with his PCP on 11/26/20 regarding management of this. His blood pressure is significantly elevated here today at 226/134 but similar to his BP reading at his PCP appointment. He denies any headaches, blurred vision, loss of vision, chest pain, dizziness, shortness of breath. He also denies fever or chills. He has not had any problems healing wounds in the past. He lives with his and 2 children. His is expecting their 3rd child in January. He works at [employer]. Progress of Wound: Chester's ulcer/wound is improved. There is decreased drainage. He is tolerating treatment well. Objective Data Objective Data Vital Signs: Vital Signs Temp Pulse Resp BP 97.7 F L 109 H 18 209/126 H 12/13/20 10:36 12/13/20 10:36 12/13/20 10:36 12/13/20 10:36 Lab / Micro Data Micro: Microbiology 11/15/20 11:15 Wound Abcess - Back Gram Stain - Final 11/15/20 11:15 Wound Abcess - Back Wound Culture - Final Staphylococcus aureus 11/15/20 11:15 Wound Abcess - Back Anaerobic Culture - Final No anaerobic bacteria isolated. Physical Exam Const alert, oriented x3 and no apparent distress General Appearance: cooperative and comfortable HEENT normocephalic and head/scalp atraumatic Eyes PERRL Lymph Lymphatic: no lymphadenopathy noted Resp normal respiratory effort Effort and Inspection: able to speak in complete sentences Auscultation: clear to auscultation bilaterally Cardio regular rate and regular rhythm GI soft to palpation and non-distended Extremity General Extremity: Negative for edema Skin General Skin Exam: erythema Wounds: wounds noted Wound Narrative: as in clinical panel Neuro oriented x3 and no focal motor deficits Psych mental status grossly normal, thought process normal, cooperative, affect normal and speech normal Debridement Note Debridement Note Wound debrided: right posterior shoulder Laterality: Right Type of Debridement: Selective debridement Anesthesia Used: 4% Lidocaine Solution Depth: Down to and including healthy tissue and in the subcutaneous layer Percentage of wound debrided: 100 Instrument Used: - (gauze) Tissue Removed: Yellow slough, devitalized tissue Severity: Fat Layer Exposed Amount of bleeding with debridement: Mild Bleeding Controlled with: Compression and gauze Patient tolerated procedure: Patient tolerated procedure well Post-Debridement Measurements and Additional Note: Post-Debridement Measurements/Treatment - Nurse 1 - General Ulcer Assessment Start: 11/15/20 10:13 Freq: Status: Active Protocol: LAVINIA.AYLIN Activity Type Activity Date Activity User E-Sign Co-Sign Detail Recorded Client Recorded Date Recorded By Document 11/15/20 10:16 RB [id number] 11/15/20 10:32 RB Document 11/22/20 10:54 [id number] 11/22/20 11:04 Document 11/29/20 10:15 RB [id number] 11/29/20 10:17 RB Document 12/13/20 10:36 RB [id number] 12/13/20 10:39 RB 11/15/20 11/22/20 11/29/20 10:16 10:54 10:15 - Today's Visit Information Type of service Initial Visit Follow-up Visit Follow-up Visit (Physician/[employer] (Physician/[employer] ) ) Arrival Mode Ambulatory Ambulatory Ambulatory Transfer Assistance None None Patient Identification Verified (Name & Yes No Yes ) Patient Requires Transmission-Based No No No Precautions Finger Stick Blood Sugar(mg/dl) (if 250 indicated): Blood Sugar Stated by Patient Vital Signs Temperature (97.8 F-99.1 F) 96.7 F L 96.2 F L 98 F Temperature Source Temporal Temporal Temporal Pulse Rate (60-100) 127 H 112 H 104 H Pulse Location Monitor Monitor Monitor Respiratory Rate (12-18) 18 18 18 Respiratory rate source Observation Observation Observation Blood Pressure (90/60-120/80) 226/134 H 196/123 H 217/128 H Blood Pressure Mean (mm Hg) 164 147 157 Source Monitor Monitor Monitor Position Semi-Fowlers Sitting Semi-Fowlers Blood Pressure Location Left Arm Left Arm Left Arm History Since Last Visit- (Skip if this is Patient's initial visit) Have you changed medications since your No No No last visit? Any new allergies or adverse reactions No No No Had a fall/change in ADL's that may No No increase risk of falls Signs or symptoms of abuse and/or No No No neglect since last visit Have you been in the hospital since your No No No last visit? Has dressing in place as prescribed Yes Yes Yes Has compression in place as prescribed No N/A No Has offloadiing in place as prescribed No N/A No Experienced any changes in pain level or No No No management Left Footwear Regular Shoe Regular Shoe Right Footwear Regular Shoe Regular Shoe Pain Scale: 0-10 Numeric Is Patient Pain Free? Yes Yes Yes Communication Assessment Preferred language Telugu Regulatory Compliance Manager Required No Able to Read Yes Able to Write Yes Communication Tools None Caregiver Communication Skills No Impairment Impairment Right Hearing Abillity Normal Left Hearing Abillity Normal Visual Assistive Devices None Teaching Assessment Preferences Verbal,Written, Demonstration Barriers to Learning None Readiness To Learn Good Willingness to Engage in Self Management Med Activies Readiness to Engage in Self Management Med Activities Anxiety Level Calm Cooperation Cooperative Perception Coherent Interest in Health Problem Asks Questions Education Importance Acknowledges Need Does Patient Smoke tobacco or other Yes substances Smoking Status Never smoker Is Patient Diabetic Yes Functional Assessment Recent Decline in Ability to Perform Denies Any Declines Assistive Device With Patient No Culture/Sikh/Case Picker Cultural/Sikh Needs that may affect No Treatment Plan Would you allow our hospital employment law specialist to No meet you for the purpose of spiritual/ emotional support? Case Picker to contact place of druze No Teaching: Wound Center *Welcome to the Wound Center -Person Taught Patient -Teaching Method Discussion, Demonstration -Response to teaching Verbalize understanding 12/13/20 10:36 WC - Today's Visit Information Type of service Follow-up Visit (Physician/[employer] ) Arrival Mode Ambulatory Transfer Assistance None Patient Identification Verified (Name & Yes ) Patient Requires Transmission-Based No Precautions Finger Stick Blood Sugar(mg/dl) (if indicated): Blood Sugar Vital Signs Temperature (97.8 F-99.1 F) 97.7 F L Temperature Source Temporal Pulse Rate (60-100) 109 H Pulse Location Monitor Respiratory Rate (12-18) 18 Respiratory rate source Observation Blood Pressure (90/60-120/80) 209/126 H Blood Pressure Mean (mm Hg) 153 Source Monitor Position Semi-Fowlers Blood Pressure Location Left Arm History Since Last Visit- (Skip if this is Patient's initial visit) Have you changed medications since your No last visit? Any new allergies or adverse reactions No Had a fall/change in ADL's that may No increase risk of falls Signs or symptoms of abuse and/or No neglect since last visit Have you been in the hospital since your No last visit? Has dressing in place as prescribed Yes Has compression in place as prescribed No Has offloadiing in place as prescribed No Experienced any changes in pain level or No management Left Footwear Right Footwear Pain Scale: 0-10 Numeric Is Patient Pain Free? Yes Communication Assessment Preferred american sign language interpreter Required Able to Read Able to Write Communication Tools Caregiver Communication Skills Impairment Right Hearing Abillity Left Hearing Abillity Visual Assistive Devices Teaching Assessment Preferences Barriers to Learning Readiness To Learn Willingness to Engage in Self Management Activies Readiness to Engage in Self Management Activities Anxiety Level Cooperation Perception Interest in Health Problem Education Importance Does Patient Smoke tobacco or other substances Smoking Status Is Patient Diabetic Functional Assessment Recent Decline in Ability to Perform Assistive Device With Patient Culture/Sikh/Case Picker Cultural/Sikh Needs that may affect Treatment Plan Would you allow our hospital employment law specialist to meet you for the purpose of spiritual/ emotional support? Case Picker to contact place of druze Teaching: Wound Center *Welcome to the Wound Center -Person Taught -Teaching Method -Response to teaching WC - Nurse 1 - General Ulcer Measurement Start: 11/15/20 10:13 Freq: Status: Active Protocol: Activity Type Activity Date Activity User E-Sign Co-Sign Detail Recorded Client Recorded Date Recorded By Document 11/15/20 10:16 RB [id number] 11/15/20 10:32 RB Document 11/22/20 10:54 [email or web address] [id number] 11/22/20 11:04 JF Document 11/29/20 10:15 RB [id number] 11/29/20 10:17 RB Document 12/13/20 10:36 RB [id number] 12/13/20 10:39 RB 11/15/20 11/22/20 10 10:16 10:54 10:15 Wound Center Nurse 1 1. RIGHT UPPER BACK -Combined with other wound No No No -Current Size (cm) - Length 3 2.7 2.5 -Current Size (cm) - Width 3.5 4.1 4 -Current Size (cm) - Depth 1 0.7 0.5 -Total Square Cm 10.5 11.07 10.0 -Photo Taken Yes No -Epithelialization Small 1-33% -Tunneling No No No -Undermining/Tunneling Yes No No -Undermining/Tunneling Starts (O'clock 10 ) -Undermining/Tunneling Ends (O'clock) 12 -Maximum Distance (cm) 0.4 -Circular Undermining No No No -Exudate Amt Large Medium Large -Exudate Type Serosanguineous Serosanguineous Serosanguineous -Wound Margin Thickened & Flat & Intact Thickened & Rolled Under Rolled Under -Granulation Amt Medium (34-66%) Large (67-100%) Large (67-100%) -Granulation Quality [place] Red Red -Slough/Fibrin Yes Yes Yes -Necrosis Amt Medium (34-66%) Small (1-33%) Small (1-33%) -Necrotic Tissue Type Adherent Slough Adherent Slough Adherent Slough -Structure Exposed N/A N/A N/A -Texture (Jess-wound Skin Appearance) Assessed, Assessed Assessed, Excoriation, Scarring Scarring -Moisture (Jess-wound Skin Appearance) Assessed Assessed -Color (Jess-wound Skin Appearance) Assessed Assessed Assessed -Temperature (Jess-wound Skin No Abnormality No Abnormality No Abnormality Appearance) (Pt Warm) (Pt Warm) (Pt Warm) -Tenderness on Palpation (Jess-wound No No No Skin Appearance) -Ulcer Cleansing Wound Cleanser Rinsed/ Wound Cleanser Irrigated with Saline -Foul Odor after Cleansing No No No -Anesthetic Used 4% Lidocaine 4% Lidocaine 5% Lidocaine Solution Solution Gel Lower Limb Edema Present NA 12/13/20 10:36 Wound Center Nurse 1 1. RIGHT UPPER BACK -Combined with other wound No -Current Size (cm) - Length 1.5 -Current Size (cm) - Width 2.4 -Current Size (cm) - Depth 0.1 -Total Square Cm 3.60 -Photo Taken -Epithelialization -Tunneling No -Undermining/Tunneling No -Undermining/Tunneling Starts (O'clock ) -Undermining/Tunneling Ends (O'clock) -Maximum Distance (cm) -Circular Undermining No -Exudate Amt Large -Exudate Type Serosanguineous -Wound Margin Thickened & Rolled Under -Granulation Amt Medium (34-66%) -Granulation Quality [place] -Slough/Fibrin Yes -Necrosis Amt Small (1-33%) -Necrotic Tissue Type Adherent Slough -Structure Exposed N/A -Texture (Jess-wound Skin Appearance) Assessed, Scarring -Moisture (Jess-wound Skin Appearance) Assessed -Color (Jess-wound Skin Appearance) Assessed -Temperature (Jess-wound Skin No Abnormality Appearance) (Pt Warm) -Tenderness on Palpation (Jess-wound No Skin Appearance) -Ulcer Cleansing Wound Cleanser -Foul Odor after Cleansing No -Anesthetic Used 5% Lidocaine Gel Lower Limb Edema Present WC - Nurse 2 - General Ulcer CM Notes Start: 11/15/20 10:13 Freq: Status: Active Protocol: Activity Type Activity Date Activity User E-Sign Co-Sign Detail Recorded Client Recorded Date Recorded By Document 11/15/20 11:01 MW [id number] 11/15/20 11:16 MW Document 11/22/20 11:29 MW [id number] 11/22/20 11:36 MW Document 11/29/20 10:43 MW [id number] 11/29/20 10:49 MW Document 12/13/20 11:10 MW [id number] 12/13/20 11:14 MW 11/15/20 11/22/20 11/29/20 11:01 11:29 10:43 Wound Center Nurse 2 1. RIGHT UPPER BACK -Time 11:01 11:29 10:43 -Correct Patient Yes Yes Yes -Correct Side, Site, Position Yes Yes Yes -Correct Procedure Yes Yes Yes -Procedure Performed Yes Yes Yes -Type of Procedure Debridement Debridement Debridement -Clinical Debridement Subcutaneous Subcutaneous Subcutaneous -Tissue Removed Subcutaneous Subcutaneous Subcutaneous -Post Debridement (cm) - Length 3.5 3.1 2.7 -Post Debridement (cm) - Width 4.5 4.2 4.0 -Post Debridement (cm) - Depth 0.9 0.5 0.2 -Total Square (Post) (cm) 15.75 13.02 10.80 -Area of Debridement (cm) - Length 3.5 3.1 2.7 -Area of Debridement (cm) - Width 4.5 4.2 4.0 -Total Square (Area) (cm) 15.75 13.02 10.80 -Tunneling Yes No No -Tunneling Position (O'clock) 5 5 -Tunneling Distance (cm) 0.9 0.9 -Undermining/Tunneling Yes Yes No -Undermining/Tunneling Starts (O'clock 1 1 ) -Undermining/Tunneling Ends (O'clock) 2 2 -Maximum Distance (cm) 0.9 0.3 -Circular Undermining No No No -Wound/Ulcer Outcome Not Healed Not Healed Not Healed -Ulcer Cleansing Rinsed/ Rinsed/ Rinsed/ Irrigated with Irrigated with Irrigated with Saline Saline Saline -Foul Odor after Cleansing No No No -Bioengineered Tissue No No No -Bleeding Controlled with Pressure Pressure Pressure -Offloading No No No -Treatment Response Procedure Procedure Procedure Tolerated Well Tolerated Well Tolerated Well -Debridement - Open, 1st 20sq cm -Debridement - Subq, 1st 20sq cm Yes Yes Yes Pain Scale: 0-10 Numeric Is Patient Pain Free? Yes Yes Yes 12/13/20 11:10 Wound Center Nurse 2 1. RIGHT UPPER BACK -Time 11:11 -Correct Patient Yes -Correct Side, Site, Position Yes -Correct Procedure Yes -Procedure Performed Yes -Type of Procedure Debridement -Clinical Debridement Epidermis / Dermis -Tissue Removed Epidermis -Post Debridement (cm) - Length 2.0 -Post Debridement (cm) - Width 2.2 -Post Debridement (cm) - Depth 0.1 -Total Square (Post) (cm) 4.40 -Area of Debridement (cm) - Length 2.0 -Area of Debridement (cm) - Width 2.2 -Total Square (Area) (cm) 4.40 -Tunneling No -Tunneling Position (O'clock) -Tunneling Distance (cm) -Undermining/Tunneling No -Undermining/Tunneling Starts (O'clock ) -Undermining/Tunneling Ends (O'clock) -Maximum Distance (cm) -Circular Undermining No -Wound/Ulcer Outcome Not Healed -Ulcer Cleansing Rinsed/ Irrigated with Saline -Foul Odor after Cleansing No -Bioengineered Tissue No -Bleeding Controlled with Pressure -Offloading No -Treatment Response Procedure Tolerated Well -Debridement - Open, 1st 20sq cm Yes -Debridement - Subq, 1st 20sq cm Pain Scale: 0-10 Numeric Is Patient Pain Free? Yes - Nurse 3 - General Ulcer D/C NN Start: 11/15/20 10:13 Freq: Status: Active Protocol: Activity Type Activity Date Activity User E-Sign Co-Sign Detail Recorded Client Recorded Date Recorded By Document 11/15/20 11:24 MW [id number] 11/15/20 11:27 MW Document 11/22/20 11:54 RB [id number] 11/22/20 11:55 RB Document 11/29/20 10:49 MW [id number] 11/29/20 10:50 MW Document 12/13/20 11:28 RB [id number] 12/13/20 11:29 RB 11/15/20 11/22/20 11/29/20 11:24 11:54 10:49 Wound Care Nurse 3 1. RIGHT UPPER BACK -Ulcer Cleansing Rinsed/ Rinsed/ Rinsed/ Irrigated with Irrigated with Irrigated with Saline Saline Saline -Foul Odor after Cleansing No No -Negative Pressure Wound Therapy N/A N/A -Primary Dressing Applied Aquacel AG 4x4 Aquacel AG 4x4 Aquacel AG 4x4, NonAdherent Contact Layer -Primary Dressing Covered/Secured with Secured with Dry Gauze, Secured with Tape Secured with Tape Tape -Other Covering ABD PAD abd pad -Aquacel AG 4x4 2 1 1 -Promogran Aleah Matter Treatment Response Procedure Procedure Procedure Tolerated Well Tolerated Well Tolerated Well Pain Scale: 0-10 Numeric Is Patient Pain Free? Yes Yes Yes Teaching: Wound Center Dressing Your Wound -Person Taught Patient Patient -Teaching Method Demonstration Discussion, Demonstration -Response to teaching Verbalize Verbalize understanding understanding WC - Visit Discharge Discharge Condition Stable Stable Stable Ambulatory Status Ambulatory Ambulatory Ambulatory Transportation Private Auto Private Auto Private Auto Accompanied by SELF self Medication Reconcilliation completed & No No No provided to patient/care provider Clinical Summary of Care Provided Yes Yes Yes 12/13/20 11:28 Wound Care Nurse 3 1. RIGHT UPPER BACK -Ulcer Cleansing Rinsed/ Irrigated with Saline -Foul Odor after Cleansing -Negative Pressure Wound Therapy -Primary Dressing Applied NonAdherent Contact Layer, Promogran Aleah Matter -Primary Dressing Covered/Secured with Dry Gauze, Secured with Tape -Other Covering -Treeveoel AG 4x4 -Promogran Aleah Matter 1 Treatment Response Procedure Tolerated Well Pain Scale: 0-10 Numeric Is Patient Pain Free? Teaching: Wound Center Dressing Your Wound -Person Taught -Teaching Method -Response to teaching WC - Visit Discharge Discharge Condition Stable Ambulatory Status Ambulatory Transportation Private Auto Accompanied by Medication Reconcilliation completed & No provided to patient/care provider Clinical Summary of Care Provided Yes Assessment/Plan Assessment/Plan (1) Non-healing non-surgical wound: CODE(S): T14.8XXA - Other injury of unspecified body region, initial encounter (2) Diabetes mellitus, insulin dependent (IDDM), uncontrolled: (3) Abscess of scapular region: CODE(S): L02.212 - Cutaneous abscess of back [any part, except buttock] (4) Asymptomatic hypertensive urgency: CODE(S): I16.0 - Hypertensive urgency (5) HTN (hypertension): CODE(S): I10 - Essential (primary) hypertension QUALIFIERS: Hypertension type: primary hypertension Qualified Code(s): I10 - Essential (primary) hypertension (6) Noncompliance w/medication treatment due to intermit use of medication: CODE(S): Z91.14 - Patient's other noncompliance with medication regimen (7) Open wound of right scapular region: CODE(S): S41.001A - Unspecified open wound of right shoulder, initial encounter QUALIFIERS: Encounter type: initial encounter Qualified Code(s): S41.001A - Unspecified open wound of right shoulder, initial encounter PLAN: Chester's wound was evaluated and debrided today at the wound healing center. Due to mild to moderate drainage, will have him use Aleah to the wound bed and cover with adaptic and ABD with changes daily. His will assist him with the dressing changes. His elevated blood pressure was again addressed with him and he was again urged to call his PCP to adjust his medications. He was encouraged to start back on his diabetes medications, as the control of his blood sugars is important in healing his wound. He was advised to increase protein intake in order to support wound healing. He was advised to call if worsening of wound, erythema, fever, chills, odor develop. Would consider biopsy of the wound if there is not improvement or infection on culture. He will follow up in 2 weeks for wound care.
== END 2020-12-15 23:59 ==
LOC: WC 10:30
PROVIDERS: PCP Internal Medicine; Visit Provider Family Medicine
DX: L02.212 Cutaneous abscess of back [any part, except buttock and flank] (principal); S41.001A Unspecified open wound of right shoulder, initial encounter; B95.8 Unspecified staphylococcus as the cause of diseases classified elsewhere; Z91.14 Patient's other noncompliance with medication regimen; E11.9 Type 2 diabetes mellitus without complications; I16.0 Hypertensive urgency; Z91.19 Patient's noncompliance with other medical treatment and regimen; Z79.4 Long term (current) use of insulin; Z79.899 Other long term (current) drug therapy
CPT/HCPCS: 11042; 87070; 87075; 87077; 87186; 87205; 97597; 99203; G0463